=== PATIENT | male | born 1960 ===

== ENCOUNTER 2017-03-23 15:52 | Emergency (ER) | payer MEDICARE ==
[2017-03-23] MEDS ORDERED: Oxycodone/Acetaminophen 5/325 mg Tab PO STA (16:12)
--- NOTE | 2017-03-23 16:16 | ED PDOC ---
HPI: Back Time Seen by Provider: 03/23/17 15:55 Chief Complaint (Nursing): Back Pain Chief Complaint (Provider): Back Pain History Per: Patient History/Exam Limitations: no limitations Onset/Duration Of Symptoms: Days (x2 weeks) Current Symptoms Are (Timing): Still Present Additional Complaint(s): Juventino Wilson is a 56 year old male with previous medical history of diabetes, hypertension, epilepsy and hypercholesterolemia, who presents to the emergency department via EMS with a complaint of left lower back pain radiating to left lower abdomen status post lifting two 36-pack of water to car ongoing for 2 weeks. Denied diarrhea, constipation, radiation to legs, dysuria and or hematuria. Patient stated he was initially given a Toradol shot and lidocaine patch at [facility] on 03/17/17 and given another shot at medical clinic 2 days ago which had not alleviate his symptoms. He also reported taking Ibuprofen today at 6am and 1pm. No bowel or bladder dysfunction. No saddle anesthesia PMD: none provided Past Medical History Reviewed: Historical Data, Nursing Documentation, Vital Signs Vital Signs: Last Vital Signs Temp 98.4 F 03/23/17 15:54 Pulse 61 03/23/17 15:54 Resp 16 03/23/17 15:54 BP 158/75 H 03/23/17 15:54 Pulse Ox 100 03/23/17 15:54 - Medical History PMH: Back Problems ("bulging discs), Diabetes, HTN, Hyperlipidemia - Surgical History Surgical History: Appendectomy - Family History Family History: States: Unknown Family Hx - Social History Current smoker - smoking cessation education provided: No Ex-Smoker (has not smoked in the last 12 months): No Alcohol: None Drugs: Denies - Immunization History Hx Tetanus Toxoid Vaccination: No Hx Influenza Vaccination: No Hx Pneumococcal Vaccination: No - Home Medications Home Medications: Ambulatory Orders Medication Instructions Recorded Lisinopril [Zestril] 40 mg PO DAILY 02/26/17 Metformin HCl [Metformin HCl ER] 1,000 mg PO BID 02/26/17 SITagliptin [Januvia] 100 mg PO DAILY 02/26/17 lamoTRIgine [LaMICtal] 100 mg PO BID 02/26/17 Aspirin [Adult Low Dose Aspirin EC] 81 mg PO DAILY 03/17/17 Cyclobenzaprine [Cyclobenzaprine 10 mg PO Q8 #9 tab 03/17/17 HCl] Ibuprofen [Motrin] 600 mg PO TID #30 tab 03/17/17 Lisinopril [Zestril] 40 mg PO DAILY #7 tab 03/17/17 Cyclobenzaprine [Cyclobenzaprine 10 mg PO TID #20 tab 03/23/17 HCl] Lidocaine 1 each TP Q12 #12 adh..patch 03/23/17 oxyCODONE/Acetaminophen [Percocet 1 ea PO Q6 PRN #5 tab 03/23/17 5/325 mg Tab] - Allergies Allergies/Adverse Reactions: Allergies Allergy/AdvReac Type Severity Reaction Status Date / Time No Known Allergies Allergy Verified 03/17/17 18:18 Review of Systems ROS Statement: Except As Marked, All Systems Reviewed And Found Negative Gastrointestinal: Positive for: Abdominal Pain (LLQ). Negative for: Diarrhea, Constipation Genitourinary Male: Negative for: Dysuria, Hematuria Musculoskeletal: Positive for: Back Pain (left lower area). Negative for: Leg Pain Physical Exam - Reviewed Nursing Documentation Reviewed: Yes Vital Signs Reviewed: Yes - Physical Exam Appears: Positive for: Well, Non-toxic, No Acute Distress Head Exam: Positive for: ATRAUMATIC, NORMAL INSPECTION, NORMOCEPHALIC Skin: Positive for: Normal Color, Warm, DRY Eye Exam: Positive for: EOMI, Normal appearance, PERRL ENT: Positive for: Normal ENT Inspection Neck: Positive for: Normal, Painless ROM Cardiovascular/Chest: Positive for: Regular Rate, Rhythm Respiratory: Positive for: CNT, Normal Breath Sounds Gastrointestinal/Abdominal: Positive for: Normal Exam, Bowel Sounds, Soft Back: Positive for: Normal Inspection, Other (LS paraspinal tenderness. Straight leg raise (+) at 60 degress) Extremity: Positive for: Normal ROM Neurologic/Psych: Positive for: Alert, Oriented - ECG O2 Sat by Pulse Oximetry: 100 (RA) Pulse Ox Interpretation: Normal Medical Decision Making Medical Decision Making: Initial Impression: Back strain; sciatica Initial Plan: * Flexeril 10mg PO * Toradol 30mg IM * Percocet 5/325 PO * * Pt on re-eval reports pain continues. Pt medicated with Morphine IM * * On second re-eval, pt reports improvement noted. * * Pt amble to ambulate with steady gait to restroom. * Dip obtained: (-) leuks, nites or blood Scribe Attestation: Documented by Gisel Wagner, acting as a scribe for Kayleen Moran Provider Scribe Attestation: All medical record entries made by the Scribe were at my direction and personally dictated by me. I have reviewed the chart and agree that the record accurately reflects my personal performance of the history, physical exam, medical decision making, and the department course for this patient. I have also personally directed, reviewed, and agree with the discharge instructions and disposition. Disposition - Clinical Impression Clinical Impression: Back pain - Patient ED Disposition Is Patient to be Admitted: No - Disposition Disposition: Routine/Home Disposition Time: 20:47 Condition: STABLE Prescriptions: Cyclobenzaprine [Cyclobenzaprine HCl] 10 mg PO TID #20 tab Lidocaine 1 each TP Q12 #12 adh..patch oxyCODONE/Acetaminophen [Percocet 5/325 mg Tab] 1 ea PO Q6 PRN #5 tab PRN Reason: Pain, Severe (8-10) Instructions: Acute Low Back Pain (ED) Forms: [employer] (Greek)
[2017-03-23] MEDS ORDERED: Oxycodone/Acetaminophen 5/325 mg Tab ONE (16:23)
[2017-03-23 20:42] VITALS: BP 155/71; PULSE 65; RESP 21; TEMP 98
[2017-03-23 20:47] VITALS: O2SAT 100
== END 2017-03-23 22:26 | disposition home or self-care (01) ==
LOC: H.ER 15:52
DX: M54.9 Dorsalgia, unspecified (principal)
CPT/HCPCS: 96372; 99283; J1885; J2270